=== PATIENT | female | born 1980 | race Two or more races ===

== ENCOUNTER 2023-09-01 17:49 | Emergency (ER) | payer OTHER ==
[~2023-09-01] VITALS: Ht 154.9 cm; Wt 67.1 kg
== END 2023-09-01 20:38 | disposition home or self-care (01) ==
LOC: ER 17:50
DX: R05.8 Other specified cough (principal); J00 Acute nasopharyngitis [common cold]; Z88.6 Allergy status to analgesic agent; Z88.8 Allergy status to other drugs, medicaments and biological substances